=== PATIENT | male | born 1995 | race Caucasian/White ===

== ENCOUNTER 2022-01-18 08:37 | Inpatient (IN) | payer BC, MEDICAID, OTHER ==
[~2022-01-18] VITALS: Ht 193 cm; Wt 79.7 kg
[~2022-01-18 08:37] MED LIST: DOXY-350 PO; PERCOCET PO
[2022-01-18 10:15] LABS: HEMATOCRIT 42.1 % (42.0-52.0); HEMOGLOBIN 14.4 g/dl (13.5-17.5); MEAN CORPUSCULAR HEMOGLOBIN 29.8 pg (27.0-33.0); MEAN CORPUSCULAR HGB CONC 34.2 g/dl (32.0-36.5); PLATELET COUNT, AUTOMATED 172 10^3/uL (150-450); RED BLOOD COUNT 4.84 10^6/uL (4.30-6.10); WHITE BLOOD COUNT 9.5 10^3/uL (4.0-10.0)
[2022-01-18 10:26] LABS: RSV AMPLIFICATION NEGATIVE (NEGATIVE)
[2022-01-18 10:42] LABS: AMPHETAMINES LEVEL URINE NEGATIVE (NEGATIVE); BARBITURATES URINE NEGATIVE (NEGATIVE); BENZODIAZEPINES URINE NEGATIVE (NEGATIVE); CANNABINOIDS URINE NEGATIVE (NEGATIVE); COCAINE METABOLITE URINE NEGATIVE (NEGATIVE); METHADONE URINE NEGATIVE (NEGATIVE); OPIATES URINE NEGATIVE (NEGATIVE); PHENCYCLIDINE URINE NEGATIVE (NEGATIVE)
[2022-01-18 10:51] LABS: ACETAMINOPHEN LEVEL < 2.0 UG/ML (10.0-30.0); ALBUMIN 4.4 GM/DL (3.2-5.2); ALT/SGPT 34 U/L (12-78); BILIRUBIN,DIRECT 0.3 MG/DL (0.0-0.2); BILIRUBIN,TOTAL 1.1 MG/DL (0.2-1.0); BLOOD UREA NITROGEN 13 MG/DL (7-18); CALCIUM LEVEL 9.5 MG/DL (8.5-10.1); CARBON DIOXIDE LEVEL 24 MEQ/L (21-32); CHLORIDE LEVEL 108 MEQ/L (98-107); ETHYL ALCOHOL (ETHANOL) < 0.003 % (0.000-0.010); GLOMERULAR FILTRATION RATE > 60.0 (>60); GLUCOSE, FASTING 96 MG/DL (70-100); POTASSIUM SERUM 3.6 MEQ/L (3.5-5.1); SALICYLATE LEVEL < 1.7 MG/DL (5.0-30.0); SODIUM LEVEL 138 MEQ/L (136-145); THYROID STIMULATING HORMONE 0.967 uIU/ML (0.358-3.740)
[2022-01-18] MEDS ORDERED: MOM 30ML SUSPENSION UDC PO PRN (14:35)
[2022-01-18] MEDS ORDERED: ACETAMINOPHEN TAB 650MG DOSE (2X325MG) PO PRN (14:35)
[2022-01-18] MEDS ORDERED: hydrOXYzine 50 MG TAB PO PRN (14:35)
[2022-01-18] MEDS ORDERED: MAALOX 30 ML SUSP *UDC PO PRN (14:35)
[2022-01-18] MEDS ORDERED: HOME MED LIST COMPLETE! XX SCH (14:35)
[2022-01-18] MEDS ORDERED: traZODone 50 MG TAB PO PRN (14:35)
[2022-01-18 15:13] VITALS: BP 143/76
[2022-01-19 06:41] VITALS: BP 139/68
[2022-01-19] MEDS: SERTRALINE HCL 25 MG TABLET PO SCH (11:25)
[2022-01-19 16:25] VITALS: BP 134/73
[2022-01-20 06:21] VITALS: BP 119/64
[2022-01-20] MEDS: SERTRALINE HCL 25 MG TABLET PO SCH (08:36)
[2022-01-20] MEDS ORDERED: NICOTINE 14 MG/24 HR TRANSDERMAL TD PRN (12:45)
[2022-01-20 18:15] VITALS: BP 157/82
[2022-01-21 06:06] VITALS: BP 154/68
[2022-01-21] MEDS ORDERED: SERTRALINE HCL 25 MG TABLET PO SCH (09:00)
[2022-01-21] MEDS ORDERED: SERT-141 PO (10:24)
[2022-01-21] MEDS ORDERED: NICO14PA TD (10:24)
== END 2022-01-21 13:00 | disposition home or self-care (01) | DRG 751 ==
LOC: EDBD 08:37 → M ED 08:37 → M ED INP 14:35 → M PSY 15:36
PROVIDERS: ADMIT Student in an Organized Health Care Education/Training Program; ATTEND Student in an Organized Health Care Education/Training Program
DX: F33.9 Major depressive disorder, recurrent, unspecified (principal); F41.1 Generalized anxiety disorder; F17.200 Nicotine dependence, unspecified, uncomplicated; R45.851 Suicidal ideations; Z62.810 Personal history of physical and sexual abuse in childhood; Z91.410 Personal history of adult physical and sexual abuse; Z63.9 Problem related to primary support group, unspecified; F17.210 Nicotine dependence, cigarettes, uncomplicated; F12.90 Cannabis use, unspecified, uncomplicated